=== PATIENT | female | born 1965 | race American Indian/Alaskan Native ===

== ENCOUNTER 2017-06-30 12:21 | Outpatient (CLI) | payer BC ==
--- NOTE | 2017-07-01 00:26 | XRay Report ---
FINAL REPORT EXAM: XR KNEE 3V RT HISTORY: PAIN IN RIGHT KNEE TECHNIQUE: Four views of the right knee were obtained. FINDINGS: There is severe narrowing of the medial compartment of the knee with marginal spurring and secondary genu Verus deformity. There is mild narrowing of the patellofemoral compartment. There is no definite acute fracture. There is a small suprapatellar joint effusion. IMPRESSION: Osteoarthritic changes involving the medial and patellofemoral compartments with genu varus deformity. Small suprapatellar joint effusion.
--- NOTE | 2017-07-01 00:27 | XRay Report ---
FINAL REPORT EXAM: XR SPINE LUMBOSACRAL 4+V HISTORY: LOW BACK PAIN TECHNIQUE: Five views of the lumbar spine were obtained. FINDINGS: There is [id number] narrowing of the L4-5 disc with grade 1 anterolisthesis. There is facet arthropathy changes bilaterally at this level. There is additional facet arthropathy changes at the L2-3, L3-4, and L5-S1 levels. There is no evidence of fracture. The SI joints appear normal. The soft tissues appear well maintained. IMPRESSION: Grade 1 anterolisthesis L4 over L5 secondary to disc degeneration and hypertrophic facet arthropathy changes. Additional facet arthropathy changes at the L2-3, L3-4, and L5-S1 levels.. No evidence of acute injury.
== END 2017-06-30 12:22 | disposition home or self-care (01) ==
LOC: XRAY 12:21
PROVIDERS: ATTEND Orthopaedic Surgery
DX: M17.11 Unilateral primary osteoarthritis, right knee (principal); M21.161 Varus deformity, not elsewhere classified, right knee; M51.37 Other intervertebral disc degeneration, lumbosacral region
CPT/HCPCS: 72110

== ENCOUNTER 2018-07-15 06:26 | Emergency (ER) | payer BC ==
[2018-07-15] MEDS ORDERED: PROVENTIL IH ONE ×2 (06:36→07:13)
[2018-07-15] MEDS ORDERED: ATROVENT IH ONE ×2 (06:36→07:13)
--- NOTE | 2018-07-15 07:18 | Emergency Department Report ---
HPI - General Chief Complaint: Dyspnea/Respdistress Time Seen by Provider: 07/15/18 07:01 - HPI HPI: Room 4 The patient is a 52-year-old female chief complaint wheezing. The patient states the past 3 days she has had a wheeze and rhinorrhea. Patient was occasional cough is nonproductive. Patient denies history of fever. The patient denies being given a diagnosis of asthma states she was prescribed an inhaler by her primary physician in the past and is just continue to use it. Location: Lungs Duration: [See above] Quality: Wheezing Severity: Moderate Modifying factors: [see above] Context: [see above] Mode of transportation: [not driving] ED Past Medical Hx - Past Medical History Previous Medical History?: Yes Hx Hypertension: Yes (takes lisinopril/hydrochlorothiazide) Additional medical history: High cholesterol takes pravastatin 40mg - Surgical History Past Surgical History?: Yes Additional Surgical History: tubal; csection; rt knee surgery - Family History Family history: no significant - Social History Smoking Status: Former Smoker (none since 2014) Substance Use Type: None (denies illicit drug use), Alcohol (occasional) - Medications Home Medications: Home Medications Medication Instructions Recorded Confirmed Last Taken Type Lisinopril/Hydrochlorothiazide 20 mg PO QDAY 09/04/13 03/12/15 03/11/15 08:00 History [Zestoretic 20-12.5 mg] Pravastatin [Pravachol] 40 mg PO QHS 03/12/15 03/12/15 03/11/15 21:00 History ALBUTEROL Inhaler (OR & NICU) 2 puff IH QID PRN #1 inhalation 07/15/18 Unknown Rx [Proair] predniSONE [Deltasone] 40 mg PO QDAY #6 tab 07/15/18 Unknown Rx ED Review of Systems ROS: Stated complaint: PAUL Other details as noted in HPI Constitutional: denies: fever Eyes: denies: eye pain ENT: other (rhinorrhea). denies: throat pain Respiratory: cough, wheezing Cardiovascular: denies: chest pain Endocrine: no symptoms reported Gastrointestinal: denies: abdominal pain Genitourinary: denies: dysuria Musculoskeletal: denies: back pain Neurological: denies: headache Physical Exam - Physical Exam Physical Exam: GENERAL: The patient is well-developed well-nourished female lying on stretcher not appearing to be in acute distress. [] HEENT: Normocephalic. Atraumatic. Extraocular motions are intact. Patient has moist mucous membranes. NECK: Supple. Trachea midline CHEST/LUNGS: Faint expiratory wheezing. There is no respiratory distress noted. HEART/CARDIOVASCULAR: Regular. There is no tachycardia. There is no gallop rub or murmur. ABDOMEN: Abdomen is soft, nontender. Patient has normal bowel sounds. There is no abdominal distention. SKIN: There is no rash. There is no edema. There is no diaphoresis. NEURO: The patient is awake, alert, and oriented. The patient is cooperative. The patient has normal speech MUSCULOSKELETAL: There is no evidence of acute injury. ED Course - Reevaluation(s) Reevaluation #1: 07/15/18 08:35 Patient improved. Lungs clear to auscultation bilaterally ED Medical Decision Making - Radiology Data Radiology results: report reviewed (chest x-ray), image reviewed (chest x-ray) interpreted by me: Chest x-ray-no focal infiltrates, no pneumothorax [facility] [address] [place] [address] XRay Report Signed Patient: JAMIE JUÁREZ MR#: [id number] : 1965 Acct:[id number] Age/Sex: 52 / F ADM Date: 07/15/18 Loc: ED Attending Dr: Ordering Physician: NATASHA SMITH MD Date of Service: 07/15/18 Procedure(s): XR chest routine 2V Accession Number(s): [id number] cc: NATASHA SMITH MD Fluoro Time In Minutes: PROCEDURE: XR CHEST ROUTINE 2V TECHNIQUE: PA and lateral chest radiographs were obtained. HISTORY: PAUL/chest congestion COMPARISONS: None. FINDINGS: Heart: Normal. Mediastinum/Vessels: Normal. Lungs/Pleural space: Normal. Bony thorax: No acute osseous abnormality. IMPRESSION: Normal examination. This document is electronically signed by Johana West MD., July 15 2018 07:16:10 AM ET Transcribed By: RB Dictated By: JOHANA WEST MD Electronically Authenticated By: JOHANA WEST MD Signed Date/Time: 07/15/18717 DD/ 7 TD/TT: 07/15/18707 - Differential Diagnosis reactive airway disease, bronchitis, pneumonia Critical care attestation.: If time is entered above; I have spent that time in minutes in the direct care of this critically ill patient, excluding procedure time. ED Disposition Clinical Impression: Reactive airway disease, Wheezing Disposition: OP ADMIT IP TO THIS HOSP Is pt being admited?: No Does the pt Need Aspirin: No Condition: Stable Instructions: Reactive Airways Disease (ED) Additional Instructions: Return to the emergency department immediately should you develop worsening symptoms, fever, inability to tolerate food or liquid or any other concerns. Prescriptions: ALBUTEROL Inhaler (OR & NICU) [Proair] 2 puff IH QID PRN #1 inhalation PRN Reason: Shortness Of Breath predniSONE [Deltasone] 40 mg PO QDAY #6 tab Referrals: CHETNA GARRETT MD [Staff Physician] - 3-5 Days (Dr. Garrett is a liquor gallery operator. Please follow up with him for further evaluation) Time of Disposition: 08:37
[2018-07-15] MEDS ORDERED: XOPENEX IH ONE (07:50)
[2018-07-15] MEDS ORDERED: DELTASONE PO ONE (07:52)
[2018-07-15 08:47] VITALS: BP 121/64
== END 2018-07-15 08:48 | disposition admitted as inpatient to this hospital (09) ==
LOC: ED 06:26
DX: J45.909 Unspecified asthma, uncomplicated (principal); I10 Essential (primary) hypertension; E78.00 Pure hypercholesterolemia, unspecified; Z87.891 Personal history of nicotine dependence; Z98.51 Tubal ligation status; Z79.899 Other long term (current) drug therapy
CPT/HCPCS: 71046; 94640; 99283; J7512

== ENCOUNTER 2018-08-14 10:38 | Outpatient (CLI) | payer BC ==
--- NOTE | 2018-08-14 13:20 | Mammography Report ---
BILATERAL DIGITAL SCREENING MAMMOGRAM with CAD: 08/14/18 10:38:00 CLINICAL: Routine screening. COMPARISON:None available. However, patient indicated that she had a previous mammogram at [facility] [place]. FINDINGS: The breasts are heterogeneously dense, which may obscure small masses. Bilateral asymmetries require additional imaging.No architectural distortion or suspicious calcifications. IMPRESSION: Bilateral asymmetries requiring further workup. BI-RADS CATEGORY: 0 -- Additional Imaging Evaluation Required RECOMMENDATION: Recall for bilateral spot magnification views and bilateral breast ultrasound if needed. We will also attempt to obtain a prior mammogram for comparison. ACR BI-RADS MAMMOGRAPHIC CODES: 0 = Needs additional imaging evaluation; 1 = Negative; 2 = Benign; 3 = Probably benign; 4 = Suspicious; 5 = Malignant; 6 = Known biopsy-proven malignancy COMMENT: 1. Dense breast tissue, i.e., adenosis, fibrocystic changes, etc., may obscure an underlying neoplasm. 2. Approximately 10% of cancers are not detected with mammography. 3. A negative mammography report should not delay biopsy if a clinically suspicious mass is present. COMMENT: Patient follow-up letters are generated via our [employer] application.
== END 2018-08-14 10:39 | disposition home or self-care (01) ==
LOC: MAMMO 10:38
PROVIDERS: ATTEND Internal Medicine
DX: Z12.31 Encounter for screening mammogram for malignant neoplasm of breast (principal); I10 Essential (primary) hypertension
CPT/HCPCS: 77067

== ENCOUNTER 2019-05-17 10:45 | Outpatient (CLI) | payer BC ==
[2019-05-17 11:06] LABS: Hematocrit 36.2 % (30.3-42.9); Hemoglobin 12.2 gm/dl (10.1-14.3); Mean Corpuscular HGB Conc 34 % (30-34); Mean Corpuscular Volume 86 fl (79-97); Platelet Count 352 K/mm3 (140-440); Red Blood Count 4.22 M/mm3 (3.65-5.03); Red Cell Distribution Width 14.2 % (13.2-15.2)
[2019-05-17 11:24] LABS: Alanine Aminotransferase 27 units/L (7-56); Albumin 4.1 g/dL (3.9-5); BUN/Creatinine Ratio 40; Blood Urea Nitrogen 16 mg/dL (7-17); Calcium 9.4 mg/dL (8.4-10.2); HDL Cholesterol 100 mg/dL (40-59); Hemolysis Index 2; LDL Cholesterol,Direct 125 mg/dL (50-130)
== END 2019-05-17 10:46 | disposition home or self-care (01) ==
LOC: LAB 10:45
PROVIDERS: ATTEND Family Medicine
DX: Z00.00 Encounter for general adult medical examination without abnormal findings (principal)
CPT/HCPCS: 36415; 80053; 80061; 84443; 85027

== ENCOUNTER 2020-03-19 07:04 | Inpatient (IN) | payer BC ==
[2020-03-17 10:36] LABS: Hematocrit 38.6 % (30.3-42.9); Hemoglobin 12.9 gm/dl (10.1-14.3); Mean Corpuscular HGB Conc 33 % (30-34); Mean Corpuscular Volume 86 fl (79-97); Platelet Count 391 K/mm3 (140-440); Red Blood Count 4.49 M/mm3 (3.65-5.03)
[2020-03-17 11:02] LABS: Blood Urea Nitrogen 13 mg/dL (7-17); Calcium 10.2 mg/dL (8.4-10.2); Hemolysis Index 3
--- NOTE | 2020-03-17 11:02 | Anesthesia Consultation ---
Anesthesia Consult and Med Hx Date of service: 03/19/20 - Airway Anesthetic Teeth Evaluation: Good, Crowns (temp crown on left upper molar) ROM Head & Neck: Adequate Mental/Hyoid Distance: Adequate Mallampati Class: Class II Intubation Access Assessment: Probably Good - Pulmonary Exam CTA: Yes - Cardiac Exam Cardiac Exam: RRR - Pre-Operative Health Status ASA Pre-Surgery Classification: ASA2 Proposed Anesthetic Plan: General Nerve Block: Adductor canal - Pulmonary Hx Smoking: Yes (former smoker quit 2015) Hx Respiratory Symptoms: No Hx Sleep Apnea: No (MARSHALL PRE SCREEN LOW RISK) - Cardiovascular System Hx Hypertension: Yes Hx Heart Attack/AMI: No Hx Percutaneous Transluminal Coronary Angioplasty (PTCA): No Hx Cardia Arrhythmia: No - Central Nervous System CVA: No Hx Back Pain: Yes - Gastrointestinal Hx Gastroesophageal Reflux Disease: No - Endocrine Hx Renal Disease: No Hx Liver Disease: No Hx Non-Insulin Dependent Diabetes: Yes Hx Thyroid Disease: No - Other Systems Hx Obesity: Yes (BMI 31) - Additional Comments Anesthesia Medical History Comments: No hx anesthetic complications. Discussed risks/benefits of GA vs neuraxial. Patient requests GA.
[2020-03-17 11:28] LABS: BUN/Creatinine Ratio 33
[~2020-03-19 07:04] MED LIST: ACETAMINOPHEN 500 MG TAB PO SCH; BUPIVACAINE/PF (0.5%) 5 MG/1 ML 30 ML VIAL INFILTRATI ONE; GABAPENTIN 300 MG CAP PO NR; KETOROLAC 30 MG/1 ML INJ ONE; LACTATED RINGERS 1,000 ML IV SCH; MIDAZOLAM 2 MG/2 ML INJ IV NR; MORPHINE 10 MG/1 ML INJ ONE; SODIUM CHLORIDE 0.9% 100 ML ONE; TRANEXAMIC ACID 1,000 MG/10 ML ONE; ceFAZolin/Water 2 GM/20 ML 2 GM/20 ML SYRINGE IV NR; fentaNYL 100 MCG/2 ML INJ IV PRN
[2020-03-19] MEDS ORDERED: HYDROmorphone 1 MG/1 ML INJ ONE ×3 (08:02→11:59)
[2020-03-19] MEDS ORDERED: propofoL 200 MG/20 ML VIAL IV ONE (08:02)
[2020-03-19] MEDS ORDERED: LIDOCAINE MPF (2%) 20 MG/1 ML VIAL 5 ML ONE (08:02)
[2020-03-19] MEDS ORDERED: dexAMETHasone 4 MG/ML VIAL ONE (08:07)
[2020-03-19] MEDS ORDERED: LIDOCAINE (1%) 10 MG/1 ML VIAL 20 ML MDV ONE (08:07)
[2020-03-19] MEDS ORDERED: BUPIVACAINE-EPINEPHRINE/PF 0.5%-1:200,000 (10 ML) VIAL INFILTRATI ONE (08:07)
--- NOTE | 2020-03-19 08:07 | Anesthesia Day of Surgery ---
Anesthesia Day of Surgery - Day of Surgery Patient Examined: Yes Patient H&P Reviewed: Yes Patient is NPO: Yes
--- NOTE | 2020-03-19 08:29 | Progress Note ---
Regional Anesthesia Block - Regional Anesthesia Block Start Time: 08:19 Stop Time: :24 Performed By:: ANIA GUAMAN Procedure: [Right] Ultrasound Guided Adductor Canal Block Pt IDd, consent obtained, time out performed. Pt on monitor + O2 via NC, VS stable, sedation given per pre-op RN. Sterile prep. Landmarks identified with ultrasound. [2]cc skin wheel with 1% lidocaine. Needle advance in plane with ultrasound. [30]cc [0.5]% bupivacaine [w/ epi] + [4]mg decadron + [100]mcg clonidine injected incrementally with negative aspiration, no paresthesias. Pt tolerated procedure well, no immediate complications noted.
[2020-03-19] MEDS ORDERED: SODIUM CHLORIDE 0.9% 250ML 250 ML ONE (08:30)
[2020-03-19] MEDS ORDERED: TRANEXAMIC ACID 1,000 MG/10 ML IV ONE (10:07)
[2020-03-19] MEDS ORDERED: KETOROLAC 30 MG/1 ML INJ IV ONE (10:08)
[2020-03-19] MEDS ORDERED: BUPIVACAINE/PF (0.5%) 5 MG/1 ML 30 ML VIAL INFILTRATI ONE (10:08)
[2020-03-19] MEDS ORDERED: MORPHINE 10 MG/1 ML INJ IM ONE (10:09)
[2020-03-19] MEDS ORDERED: SODIUM CHLORIDE 0.9% 250 ML IVPB IV ONE (10:10)
[2020-03-19] MEDS ORDERED: ONDANSETRON 4 MG/2 ML INJ ONE (11:01)
--- NOTE | 2020-03-19 11:58 | Procedure Note ---
Date of procedure: 03/19/20 Pre-op diagnosis: Severe arthritis right knee Post-op diagnosis: same Procedure: [Right] total knee replacement Procedure The patient was brought to the OR after being given a obturator nerve block and preoperative holding she was placed on the OR table supine position following induction elevation of anesthesia the patient is [right] lower extremity was prepped and draped in the usual sterile manner. A timeout procedure was done to identify the patient in the correct operative site. The leg was exsanguinated followed by inflation of the pneumatic tourniquet to 300 mmHg. A midline incision was made over the patella was taken down distally towards the tibial tubercle next the medial retinaculum was incised and the patella was inverted examination of the patient's knee joint revealed typical osteoarthritic changes with large bone spurs noted primarily in the medial compartment both the femoral and tibial's articular surfaces exhibited bare bone and large peripheral osteophytes next a large drill bit was used to enter the medullary canal this was followed by placement of the distal femoral cutting Jig the distal femur was resected approximately 8-9 mm of bone was removed at this time. Attention was turned to the patient's proximal tibia using a external alignment guide the bone was cut using the medial surface as the low point of care was taken to protect the medial collateral ligaments the tibial articular surface was 7-sized A3 a #3 tibial based ray was selected this was followed by placement of the fixation hole or keel into the proximal tibial medullary canal. Attention was turned to the distal femur and using a 4 and 1 cutting block a +3 component was selected AP anterior and posterior as well as Little cuts were made a +3 tibial ostomy femoral component was placed and the knee was then taken to a range of motion she appeared to have stability in both the flexion and extension FOLLOWING this the trial components were removed the knee was then copiously irrigated any remaining soft tissue and bony debris were removed at this time next the cement was next and following this the tibial components were inserted beginning with the based ray followed by the polyethylene insert The femoral component was added the excess were removed the knee was held in extension until the cement hardened following hardening of cement the knee was then brought back into of flexion any remaining soft tissue and bony debris were removed at this time. The wound again was irrigated and was closed in a standard routine fashion. Dressings were applied the patient tolerated the procedure there were no complications she was then taken to post anesthesia recovery Anesthesia: MAC Surgeon: JOHANA COLIN Lawyer Criminal: JOSELIN AKERS Estimated blood loss: 50-100ml Pathology: list (Portions of the right distal femur and proximal tibia was sent to pathology) Specimen disposition: to lab Condition: stable Disposition: PACU
[2020-03-19] MEDS ORDERED: HYDROmorphone 1 MG/1 ML INJ IV PRN (12:00)
[2020-03-19] MEDS ORDERED: ONDANSETRON 4 MG/2 ML INJ IV PRN (12:00)
[2020-03-19] MEDS ORDERED: diphenhydrAMINE 50 MG/ML VIAL ONE (12:17)
[2020-03-19] MEDS ORDERED: diphenhydrAMINE 50 MG/ML VIAL IV NR (12:28)
--- NOTE | 2020-03-19 14:45 | Post Anesthesia Evaluation ---
- Post Anesthesia Evaluation Patient Participated: Yes Airway Patent: Yes Stable Respiratory Function: Yes Nausea/Vomiting: No Temp > 96.8F: Yes Pain Manageable: Yes Adequeate Hydration: Yes Anesthesia Complications: No Other Comments: Currently stable for transfer but awaiting bed assignment. Patient received preop adductor canal block 2/2 marcaine by myself and marcaine was injected intraoperatively by surgeon. Total marcaine dose was slightly higher than recommended max dose. Thus far no signs/symptoms of LAST however patient will be monitored with remote telemetry overnight.
--- NOTE | 2020-03-19 18:04 | XRay Report ---
RIGHT KNEE 2 VIEWS INDICATION / CLINICAL INFORMATION: Postop evaluation. COMPARISON: None available. FINDINGS: There is a right knee prosthesis with postsurgical gas in the soft tissues. I see no evidence of frac ture or dislocation. No complication of surgery is seen. Signer Name: Caleb Cannon MD Signed: 03/19/2020 5:59 PM Workstation Name: [id number]
[2020-03-19] MEDS: MORPHINE 2 MG/1 ML INJ IV PRN (21:32)
[2020-03-20] MEDS: MORPHINE 2 MG/1 ML INJ IV PRN ×5 (02:17→22:23)
[2020-03-20] MEDS: IBUPROFEN 800 MG TAB PO PRN ×2 (09:35→18:20)
[2020-03-20] MEDS: ENOXAPARIN 40 MG/0.4 ML INJ SUB-Q SCH (09:42)
[2020-03-20] MEDS: KETOROLAC 30 MG/1 ML INJ IV PRN ×2 (13:14→19:18)
--- NOTE | 2020-03-20 13:24 | Progress Note ---
Assessment and Plan Continue physical therapy hopefully discharge soon Subjective Date of service: 03/20/20 Interval history: Complaining of right leg pain especially after PT session otherwise doing okay Objective Vital signs: Vital Signs - 12hr 03/20/20 03/20/20 03/20/20 04:52 09:57 10:31 Temperature 98.8 F 100.1 F H 100.5 F H Pulse Rate 82 96 H 89 Respiratory 18 19 18 Rate Blood Pressure 116/43 Blood Pressure 153/68 152/92 [Right] O2 Sat by Pulse 92 98 95 Oximetry Incision: healing, clean and dry Weight bearing status: as tolerated - Labs CBC & BMP: 03/17/20 09:50 03/17/20 09:50 Labs: Abnormal lab results 03/19/20 03/19/20 Range/Units 15:10 18:25 POC Glucose 112 H 112 H (70-105) mg/dL
[2020-03-21] MEDS: KETOROLAC 30 MG/1 ML INJ IV PRN ×3 (02:15→16:28)
[2020-03-21] MEDS: MORPHINE 2 MG/1 ML INJ IV PRN ×3 (05:58→19:53)
[2020-03-21] MEDS: ENOXAPARIN 40 MG/0.4 ML INJ SUB-Q SCH (10:24)
[2020-03-22] MEDS: MORPHINE 2 MG/1 ML INJ IV PRN ×5 (05:45→20:20)
[2020-03-22] MEDS: ENOXAPARIN 40 MG/0.4 ML INJ SUB-Q SCH (10:39)
--- NOTE | 2020-03-22 10:49 | Progress Note ---
Assessment and Plan Continue physical therapy hopefully discharge soon Subjective Date of service: 03/22/20 Interval history: Complaining of right leg pain especially after PT session otherwise doing okay Objective Vital signs: Vital Signs - 12hr 03/21/20 03/22/20 03/22/20 23:26 05:51 07:09 Temperature 99.9 F H 99.9 F H 97.0 F L Pulse Rate 83 87 86 Respiratory 18 18 20 Rate Blood Pressure 132/56 142/60 151/61 O2 Sat by Pulse 96 97 98 Oximetry 03/22/20 07:28 Temperature Pulse Rate Respiratory Rate Blood Pressure O2 Sat by Pulse 97 Oximetry Incision: healing, clean and dry Weight bearing status: as tolerated - Labs CBC & BMP: 03/17/20 09:50 03/17/20 09:50
[2020-03-22] MEDS: KETOROLAC 30 MG/1 ML INJ IV PRN (12:41)
[2020-03-23] MEDS: KETOROLAC 30 MG/1 ML INJ IV PRN ×2 (00:10→11:44)
[2020-03-23] MEDS: MORPHINE 2 MG/1 ML INJ IV PRN (06:00)
--- NOTE | 2020-03-23 09:37 | Discharge Summary ---
Providers - Providers Date of Admission: 03/19/20 07:04 Date of discharge: 03/23/20 Attending physician: JOHANA COLIN MD 03/19/20 11:50 Physical Therapy Evaluation and Treat [CONS] Routine Comment: Reason For Exam: Postop evaluation Weight bearing status?: Full wt bearing Assistive devices?: Yes If so list: Walker Primary care physician: COLLIN SARAVIA Hospitalization Condition: Stable Procedures: Right total knee replacement Hospital course: 54-year-old female who complains of long history of right knee pain and swelling off and on for years preoperative x-rays show significant osteoarthritis patient was admitted to the hospital and was taken to the operating room where right total knee replacement was performed. Postoperatively she was seen and evaluated by physical therapy where she was given instructions on gait and range of motion exercises arrangements were made for home health outpatient patient will be discharged home with return follow-up appointment in the office Disposition: DC/ HOME UNDER HOME [facility] Core Measure Documentation - Palliative Care Palliative Care/ Comfort Measures: Not Applicable - Core Measures Any of the following diagnoses?: none - VTE Discharge Requirements Deep Vein Thrombosis/Pulmonary Embolism Present on Admission: No Has pt received <5 days of overlap therapy or INR<2.0: Yes Anticoagulant overlap therapy prescribed at discharge: Yes Contraindication No Overlap Therapy order at DC: Not Indicated - Acute HI Discharge Requirements Aspirin at discharge: No Reason for no aspirin on DC: Medical contraindication - Heart Failure Discharge Requirements JUDITH/ARB for LVSD if EF <40%: No Reason for no JUDITH/ARB: Medical contraindication - Stroke Discharge Requirements Statin for LDL = or >70 mg/dl on DC: No Reason for no statin on DC: Medical Contraindication Exam - Constitutional Vitals: Temp Pulse Resp BP Pulse Ox 99.0 F 91 H 18 146/35 99 03/23/20 08:40 03/23/20 08:40 03/23/20 08:40 03/23/20 08:40 03/23/20 08:40 General appearance: Present: no acute distress, well-nourished - EENT Eyes: Present: PERRL ENT: hearing intact, clear oral mucosa - Neck Neck: Present: supple, normal ROM - Respiratory Respiratory effort: normal Respiratory: bilateral: CTA - Cardiovascular Heart Sounds: Present: S1 & S2. Absent: rub, click - Extremities Extremities: pulses symmetrical, No edema Peripheral Pulses: within normal limits - Abdominal General gastrointestinal: Present: soft, non-tender, non-distended, normal bowel sounds Female genitourinary: Present: normal - Integumentary Integumentary: Present: clear, warm, dry - Musculoskeletal Musculoskeletal: gait normal, strength equal bilaterally - Psychiatric Psychiatric: appropriate mood/affect, intact judgment & insight - Neurologic Neurologic: CNII-XII intact, moves all extremities Plan Activity: advance as tolerated Weight Bearing Status: Weight Bear as Tolerated Diet: regular Wound: keep clean and dry Special Instructions: physical therapy Durable Medical Equipment Needed Upon Discharge: Walker-Standard, Bedside Commode Follow up with: COLLIN SARAVIA MD [Primary Care Provider] - 7 Days Prescriptions: Apixaban [Eliquis] 5 mg PO DAILY #30 tablet Oxycodone HCl/Acetaminophen [Percocet 10/325 mg] 1 each PO Q6HR PRN #30 tablet PRN Reason: Pain
[2020-03-23] MEDS: ENOXAPARIN 40 MG/0.4 ML INJ SUB-Q SCH (11:52)
[2020-03-23 12:28] VITALS: BP 135/64
== END 2020-03-23 14:40 | disposition home health service (06) | DRG 470 ==
LOC: 3A 07:04 → 3B-SURG 18:00
PROVIDERS: ADMIT Orthopaedic Surgery; ATTEND Orthopaedic Surgery
PROC: 0SRC0J9 Replacement of Right Knee Joint with Synthetic Substitute, Cemented, Open Approach (ICD-10-PCS; principal; 2020-03-19)
DX: M17.11 Unilateral primary osteoarthritis, right knee (principal); E78.00 Pure hypercholesterolemia, unspecified; I10 Essential (primary) hypertension; E11.9 Type 2 diabetes mellitus without complications; Z20.828 Contact with and (suspected) exposure to other viral communicable diseases; Z98.51 Tubal ligation status; Z79.899 Other long term (current) drug therapy; Z87.891 Personal history of nicotine dependence
CPT/HCPCS: 36415; 64450; 80048; 82962; 85027; 88304; 88311; G0378; C1776; J1100; J1170; J1200; J1650; J1885; J2250; J2270; J2405; J2704; J3010; J7050; J7120; U0003